=== PATIENT | female | born 1960 | race Caucasian/White ===

== ENCOUNTER 2017-02-19 19:40 | Emergency (ER) | payer MEDICAID ==
[~2017-02-19] VITALS: Ht 157.5 cm; Wt 47.6 kg
[2017-02-19 19:40] VITALS: BP 126/80
[2017-02-19] MEDS ORDERED: TRAMADOL HCL 50 MG TABLET PO ONE (20:00)
[2017-02-19] MEDS ORDERED: TRAMADOL HCL 50 MG TABLET ONE (20:09)
== END 2017-02-19 21:12 | disposition home or self-care (01) ==
LOC: ER 19:42
DX: S42.451A Displaced fracture of lateral condyle of right humerus, initial encounter for closed fracture (principal); W01.0XXA Fall on same level from slipping, tripping and stumbling without subsequent striking against object, initial encounter; Y93.01 Activity, walking, marching and hiking; Y92.488 Other paved roadways as the place of occurrence of the external cause; Y99.8 Other external cause status; M19.90 Unspecified osteoarthritis, unspecified site; Z86.718 Personal history of other venous thrombosis and embolism
CPT/HCPCS: 73080-TC; A4606; Z7610